=== PATIENT | male | born 1960 | race Caucasian/White ===

== ENCOUNTER 2016-07-10 14:33 | Emergency (ER) | payer BC | END 2016-07-10 22:22 | disposition home or self-care (01) | LOC: ER 14:33 | PROC: 2W3JX1Z Immobilization of Right Finger using Splint (ICD-10-PCS; principal; 2016-07-10) | DX: S62.639A Displaced fracture of distal phalanx of unspecified finger, initial encounter for closed fracture (principal); S30.0XXA Contusion of lower back and pelvis, initial encounter; F17.200 Nicotine dependence, unspecified, uncomplicated; Z88.5 Allergy status to narcotic agent; W19.XXXA Unspecified fall, initial encounter | CPT/HCPCS: 70450; 72100; 73130-RT; 93005; 99284; A9270-GY ==